=== PATIENT | female | born 1990 | race Caucasian/White ===

== ENCOUNTER → 2018-12-21 15:03 | Observation (INO) ==
--- NOTE | 2018-12-21 14:16 | OB/GYN Progress Note ---
Date of Encounter: 12/21/18 Time of Encounter: 14:15 - Assessment and Plan (1) 32 weeks gestation of Current Visit: Yes Status: Acute NST reactive. Non indicative of labor Negative urine results Discussed common discomforts of and relief measures. Discharge home with labor precautions Follow up with routine care and PRN POC per consult with Dr. Miguel (2) NST (non-stress test) reactive Current Visit: Yes Status: Acute Subjective - Subjective Interval history: Ms Eason is a that presents to triage with c/o contractions every 1 to 1.5 hours, lower back pain, and swelling in her feet. She states positive movement. She denies headaches, vision changes, epigastric pain, leaking of fluid, vaginal discharge, and regular contractions/cramping. She is seen by Dr Miguel for her care and has had an uncomplicated . Antepartum ROS: movement normal, contractions, no loss of fluid, no vaginal bleeding Objective - Vital Signs Vital Signs: Intake and Output 12/20/18 12/21/18 12/21/18 23:59 07:59 15:59 Other: Weight 78.9 kg Patient Weight 12/21/18 23:59 Weight 78.9 kg - Exam FHR: auscultation normal, category 1 FHR comments: 135 bpm per EFM uterine irritability via toco Auscultation: bilateral: normal Abdomen: Present: normal appearance, soft, gravid. Absent: distention, tenderness Uterus: Present: normal. Absent: firm, tenderness
[2018-12-21 14:18] LABS: Bilirubin,Urine Negative (Negative); Blood,Urine Negative (Negative); Clarity,Urine Cloudy (Clear); Color,Urine Yellow (Yellow); Glucose,Urine (UA) Normal (Normal); Ketones,Urine Negative (Negative); Leukocyte Esterase,Urine Small (Negative); Nitrite,Urine Negative (Negative); Protein,Urine Negative (Neg-Trace); Urobilinogen,Urine Normal (Normal)
[2018-12-21 14:20] LABS: Bacteria,Urine None Seen per hpf (None-Few); Hyaline Casts,Urine None Seen per lpf (None-Few); RBC,Urine 0-3 per hpf (0-3); Squamous Epithelial Cell,Urine Many per lpf (None-Few)
[2018-12-21 14:37] LABS: Amphetamine Screen,Urine Negative ng/mL (Cutoff=1000); Barbiturate Screen,Urine Negative ng/mL (Cutoff=200); Benzodiazepines Screen,Urine Negative ng/mL (Cutoff=200); Cannabinoid Screen,Urine Negative ng/mL (Cutoff = 50); Cocaine Screen,Urine Negative ng/mL (Cutoff= 300); Opiate Screen,Urine Negative ng/mL (Cutoff=300); Phencyclidine Screen,Urine Negative ng/mL (Cutoff=25)
== END | disposition home or self-care (01) ==
LOC: 1NENULAB
PROVIDERS: ADMIT Advanced Practice Midwife; ATTEND Advanced Practice Midwife

== ENCOUNTER 2019-02-04 08:46 | Inpatient (IN) ==
--- NOTE | 2019-02-04 10:10 | Anesthesia Evaluation PreOp ---
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 Other Medical History: Denies Any Significant HX Anesthesia History: No Prior Anesthetic Complications, Past Anesthesia (denies any family hx.) Alcohol Use: none Drug use: none Medications and Allergies Calcium Carbonate [Tums] 1,000 mg PO Q4HR PRN 02/04/19 [History] Allergy/AdvReac Type Severity Reaction Status Date / Time azithromycin Allergy Anaphylaxis Verified 12/21/18 13:42 [From Zithromax Z-Bhupinder] latex Allergy Anaphylaxis Verified 12/21/18 13:42 dextromethorphan AdvReac Vomiting Verified 12/21/18 13:42 [From Capmist DM] guaifenesin [From Capmist DM] AdvReac Vomiting Verified 12/21/18 13:42 pseudoephedrine AdvReac Vomiting Verified 12/21/18 13:42 [From Capmist DM] Anesthesia Results - Labs 02/04/19 10:11 Anesthesia Exam - HEENT Pupil (Motor): Pupils equal Mallampati: II Teeth: Normal Oral Opening: Greater than 3 - TYPESETTING SUPERVISOR LOC: Oriented TYPESETTING SUPERVISOR Motor: Normal RUE, Normal LUE, Normal RLE, Normal LLE, Normal Face TYPESETTING SUPERVISOR Sensory: Normal: RUE, LUE, RLE, LLE, Face - Cardiac Rhythm: Regular Murmur: None - Pulmonary Breath Sounds: bilateral Clear Respiratory Effort: Symmetrical Anesthesia Assess/Plan ASA Score: 2 Level of consciousness: Cooperative, Oriented Anesthetic Plan: General, Spinal, Epidural Monitoring Plan: Standard Monitors Recovery Plan: PACU
[2019-02-04] MEDS ORDERED: Epidural Premix (fent/bupiv) 110 ML EP SCH (10:15)
[2019-02-04] MEDS ORDERED: Naloxone 0.4 MG/ML INJ IVP PRN (10:16)
[2019-02-04] MEDS ORDERED: Famotidine 20 MG/2 ML VIAL IVP PRN (10:16)
[2019-02-04] MEDS ORDERED: Lidocaine 1% 20 ML MDV INFILT PRN (10:16)
[2019-02-04] MEDS ORDERED: Metoclopramide 10 MG/2 ML VIAL IVP PRN (10:16)
[2019-02-04] MEDS ORDERED: *HR* Nalbuphine 10 MG/ML AMPUL IVP PRN (10:16)
[2019-02-04] MEDS ORDERED: Ondansetron 4 MG/2 ML VIAL IVP PRN (10:16)
[2019-02-04] MEDS ORDERED: Oxytocin 20 units/ LR 1000 mL 20 UNIT/1,000 ML BAG IVC SCH ×4 (10:30→17:14)
[2019-02-04] MEDS ORDERED: Ringers Solution, Lactated 1,000 ML IVC SCH (10:30)
[2019-02-04 10:35] LABS: Basophils % 0.4 %; Eosinophils % 0.6 %; Hematocrit 30.6 % (35.3-44.9); Hemoglobin 9.9 g/dL (11.5-15.4); Immature Granulocytes % 1.3 % (0-4); Lymphocytes # 1.5 K/mcL (0.6-4.6); Lymphocytes % 20.5 %; Mean Corpuscular HGB Conc 32.4 g/dL (31.6-35.5); Mean Corpuscular Hemoglobin 27.2 pg (28.0-33.3); Mean Corpuscular Volume 84.1 fL (83.0-100.0); Mean Platelet Volume 13.6 fL (9.4-12.4); Monocytes # 0.5 K/mcL (0.0-1.3); Monocytes % 6.7 %; Neutrophils # 5.1 K/mcL (1.6-8.9); Platelet Count 144 K/mcL (140-400); Red Blood Count 3.64 M/mcL (3.82-4.97); Red Cell Distribution Width 13.8 % (11.5-14.5); Segmented Neutrophils % 70.5 %
[2019-02-04] MEDS ORDERED: Epidural Premix (fent/bupiv) 110 ML EP ONE (11:09)
[2019-02-04] MEDS ORDERED: Lidocaine -MPF 2% 5 ML VIAL ONE (11:12)
[2019-02-04] MEDS ORDERED: Famotidine 20 MG/2 ML VIAL IVP ONE (11:37)
[2019-02-04 12:18] LABS: Amphetamine Screen,Urine Negative ng/mL (Cutoff=1000); Barbiturate Screen,Urine Negative ng/mL (Cutoff=200); Benzodiazepines Screen,Urine Negative ng/mL (Cutoff=200); Cannabinoid Screen,Urine Negative ng/mL (Cutoff = 50); Cocaine Screen,Urine Negative ng/mL (Cutoff= 300); Opiate Screen,Urine Negative ng/mL (Cutoff=300); Phencyclidine Screen,Urine Negative ng/mL (Cutoff=25)
[2019-02-04 12:56] LABS: Rubella IgG Antibody Negative (POSITIVE); Varicella Zoster IgG Antibody Positive
[2019-02-04] MEDS ORDERED: *HR* Ropivacaine/PF 0.2% 20 ML VIAL ONE (14:31)
--- NOTE | 2019-02-04 15:03 | Anesthesia Procedures ---
Date of Encounter: 02/04/19 Time of Encounter: 13:53 Procedures: Anesthesia - Epidural/Spinal Patient ID/Chart reviewed: Yes Patient examined: Yes OB Eval: Gestational age: term OB Eval: : 1 OB Eval: Contractions: Non-stressed pattern Consent Obtained: Yes Supplemental Oxygen: None/Room Air Site Prep: Aseptic Technique, Sterile prep and drape, 0.5% Chlorhexidine/Alcohol Patient position: upright Local Anesthetic: Lidocaine 1% Amount of Local Anesthetic used: 2 Touhy Needle Gauge: 18 Touhy Needle Depth (cm): 5 Catheter Depth at Skin (cm): 9 Test Dose (1.5% Lido + Epi): Volume given (mls): 4 Test Dose Result: Negative Loading Dose: Other: 10ml from solution Loading Dose Administered: Thru Catheter Infusion Med: 0.125% Bupivacaine w/ 2 mcg/ml Fentanyl Infusion Rate (mls/hr): [address]: Tegaderm, Tape Interspace Used: L3-L4 Loss of Resistance (JORGE): Yes (saline) Blood: No CSF: Yes (25g purposeful sprotte, ) Paresthesia: No Procedure: vss though out, FHR stable per RN' s
[2019-02-04] MEDS ORDERED: Acetaminophen 325 MG TABLET PO PRN (16:54)
[2019-02-04] MEDS ORDERED: Benzocaine/Menthol 56 GM AEROSOL SPRAY TP PRN (16:54)
[2019-02-04] MEDS ORDERED: Measles/Mumps/Rubella Vacc 0.5 ML VIAL SQ PRN (16:54)
--- NOTE | 2019-02-04 17:05 | OB/GYN Procedure Note ---
Delivery - Delivery Date: 02/04/19 Provider: Brad Miguel Intrapartum events: none Delivery induction: oxytocin Delivery augmentation: rupture of membranes Delivery monitor: external FHT, external uterine Anesthesia: epidural Quantitated Blood Loss: 200 - Infant (s) A Infant Delivery Date: 02/04/19 Infant Delivery Time: 16:33 Presentation: vertex Position: OA Route of delivery: Gender: Female Viability: Viable Pounds: 7 Ounces: 8 Weight Gram: 3.41 kg at 1 minute: 9 at 5 mins: 9 Shoulder Dystocia: not encountered Specimens collected: cord blood Placenta: spontaneous Cord: 3 umbilical vessels - Repair Episiotomy: none Laceration Description: Perineal - 2nd Degree - Complications Delivery complications: none - Disposition Mom disposition: stable in LDR [place] disposition: stable in LDR - Comments Comments: Patient progressed rapidly to complete and pushing. She had a spontaneous vaginal delivery of a female infant over an intact perineum. Infant's head was in the perineum easily. There was a tight cord around the neck which was reduced. The rest of the was then delivered with 1 push. cried immediately upon delivery. Cord was cut to cut. The was in past nurse in attendance. Cord bloods obtained. Placenta was delivered spontaneously and intact. There are no cervical, vaginal or periurethral lacerations noted. There was a second-degree perineal laceration noted and repaired with 0 Vicryl suture fashion. Patient delivered a female infant. Weight was 7 lbs. 8 oz. Apgars are 9 at 1 minute and 9 at 5 minutes. Assessment blood loss 200 mL.
--- NOTE | 2019-02-04 17:20 | OB/GYN History & Physical ---
Date of Encounter: 02/04/19 Time of Encounter: 17:18 Assessment and Plan (1) 39 weeks gestation of Current visit: Yes Status: Acute (2) Elective induction of labor planned Current visit: Yes Status: Acute History of Present Illness Chief complaint: Induction of labor HPI: Ms. Eason is a 28 year old female 1 at 39 weeks and 3 days to scheduled for induction of labor. This patient presented doing well with no complaints. She has allergies to Zithromax and Missed. She has no chronic medical cond itions. Surgical history is negative. She is currently on vitamins. Socially she denies tobacco, alcohol, illicit drug use. She has no history of abnormal Pap smears, STDs or pelvic infections. 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 Psychiatric history: no psych history - Past Surgical History Surgical History: appendectomy Additional surgical history: 2010 Appendectomy - Social History Smoking Status: Never smoker Smokeless Tobacco Status: No Alcohol use: none Drug use: none - Family History Mother Living Status: Still Living Hx Family Cardiac Disorders: Yes (HTN, High Cholesterol) Hx Family Cancer: Yes (Double Mastectomy Breast CA) Hx Family Genitourinary Disorders: Yes (hx of kidney stones) Hx Family HEENT Disorders: Yes (Macular degeneration) Father Hx Family Endocrine Disorder: Yes (Type II DM) Obstetrical History - Pregnancies : 1 Medications and Allergies Calcium Carbonate [Tums] 1,000 mg PO Q4HR PRN 02/04/19 [History] Allergy/AdvReac Type Severity Reaction Status Date / Time azithromycin Allergy Anaphylaxis Verified 12/21/18 13:42 [From Zithromax Z-Bhupinder] latex Allergy Anaphylaxis Verified 12/21/18 13:42 dextromethorphan AdvReac Vomiting Verified 12/21/18 13:42 [From Capmist DM] guaifenesin [From Capmist DM] AdvReac Vomiting Verified 12/21/18 13:42 pseudoephedrine AdvReac Vomiting Verified 12/21/18 13:42 [From Capmist DM] Review of System OB All systems PM: reviewed and no additional remarkable complaints except as stated Exam - Constitutional Constitutional: well developed, well nourished, no acute distress - HEENT HEENT: EOMI, PERRL - Neck Neck exam: full ROM - Lungs Respiratory exam: CTAB - Cardiovascular Cardiovascular exam: RRR - Abdomen Abdomen: Present: bowel sounds normal, gravid - Extremities Extremities exam: full ROM - Vagina Vagina: Present: normal moisture - Cervix Dilation: 3 Effacement: 50 Station: -2 - Uterus Uterus exam: Present: normal size Results Result Diagrams: 02/04/19 10:11 Abnormal lab results RBC 3.64 M/mcL (3.82-4.97) L 02/04/19 10:11 Hgb 9.9 g/dL (11.5-15.4) L 02/04/19 10:11 Hct 30.6 % (35.3-44.9) L 02/04/19 10:11 MCH 27.2 pg (28.0-33.3) L 02/04/19 10:11 MPV 13.6 fL (9.4-12.4) H 02/04/19 10:11 Negative (POSITIVE) L 02/04/19 11:42 All other labs normal. - VTE Reasons for not Prescribing Prophylaxis: Treatment not Indicated - Low risk for VTE
[2019-02-04] MEDS ORDERED: Ibuprofen 600 MG TABLET PO PRN (17:50)
[2019-02-05 05:17] LABS: Basophils % 0.3 %; Eosinophils # 0.1 K/mcL (0.0-0.6); Eosinophils % 0.6 %; Hematocrit 27.3 % (35.3-44.9); Hemoglobin 8.8 g/dL (11.5-15.4); Immature Granulocytes % 0.8 % (0-4); Lymphocytes % 17.1 %; Mean Corpuscular HGB Conc 32.2 g/dL (31.6-35.5); Mean Corpuscular Hemoglobin 26.9 pg (28.0-33.3); Mean Corpuscular Volume 83.5 fL (83.0-100.0); Mean Platelet Volume 13.2 fL (9.4-12.4); Monocytes % 8.3 %; Neutrophils # 8.5 K/mcL (1.6-8.9); Platelet Count 124 K/mcL (140-400); Red Blood Count 3.27 M/mcL (3.82-4.97); Red Cell Distribution Width 14.1 % (11.5-14.5); Segmented Neutrophils % 72.9 %
[2019-02-05] MEDS ORDERED: Prenatal Vit/FA 1 EACH TABLET PO SCH ×2 (09:00)
--- NOTE | 2019-02-05 09:29 | Discharge Summary ---
Date of Encounter: 02/05/19 Time of Encounter: 09:27 - Discharge Diagnosis (1) Vaginal delivery Priority: Primary Status: Acute Comments: Pt meeting all milestones. 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 No complaints. She declines contraception at this time. Safe spacing discussed. (2) Rubella nonimmune status, delivered, current hospitalization Priority: Secondary Status: Acute Comments: Offer vaccine prior to discharge (3) anemia Priority: Secondary Status: Acute Comments: Pt denies s/sx anemia. Discharge home on iron. - Discharge Medications Prescriptions: New Ibuprofen [Motrin] 600 mg PO Q6HR PRN #30 tablet PRN Reason: Mild To Moderate Pain Docusate [Colace] 100 mg PO BID #60 capsule Ferrous Sulfate 325 mg PO DAILY #30 tablet Continued Calcium Carbonate [Tums] 1,000 mg PO Q4HR PRN PRN Reason: Heartburn Home Medications: Calcium Carbonate [Tums] 1,000 mg PO Q4HR PRN 02/04/19 [History] Docusate [Colace] 100 mg PO BID #60 capsule 02/05/19 [Rx] Ferrous Sulfate 325 mg PO DAILY #30 tablet 02/05/19 [Rx] Ibuprofen [Motrin] 600 mg PO Q6HR PRN #30 tablet 02/05/19 [Rx] Allergies/Adverse Reactions: Allergy/AdvReac Type Severity Reaction Status Date / Time azithromycin Allergy Anaphylaxis Verified 12/21/18 13:42 [From Zithromax Z-Bhupinder] latex Allergy Anaphylaxis Verified 12/21/18 13:42 dextromethorphan AdvReac Vomiting Verified 12/21/18 13:42 [From Capmist DM] guaifenesin [From Capmist DM] AdvReac Vomiting Verified 12/21/18 13:42 pseudoephedrine AdvReac Vomiting Verified 12/21/18 13:42 [From Capmist DM] Data Procedures and tests throughout hospitalization: Laboratory Tests 02/04/19 02/04/19 02/04/19 10:11 11:42 11:42 WBC 7.2 RBC 3.64 L Hgb 9.9 L Hct 30.6 L MCV 84.1 MCH 27.2 L MCHC 32.4 RDW 13.8 Plt Count 144 MPV 13.6 H Immature Gran % 1.3 Seg Neutrophils % 70.5 Lymphocytes % 20.5 Monocytes % 6.7 Eosinophils % 0.6 Basophils % 0.4 Neutrophils # 5.1 Lymphocytes # 1.5 Monocytes # 0.5 Eosinophils # 0.0 Basophils # 0.0 Urine Opiates Screen Negative Ur Barbiturates Screen Negative Ur Phencyclidine Scrn Negative Ur Amphetamines Screen Negative U Benzodiazepines Scrn Negative Urine Cocaine Screen Negative U Marijuana (THC) Screen Negative Ur Drug Screen Interp See Below Hep Bs Antigen Nonreactive Rubella IgG Antibody VZV IgG Antibody 02/04/19 02/05/19 11:42 04:50 WBC 11.7 H D RBC 3.27 L Hgb 8.8 L Hct 27.3 L MCV 83.5 MCH 26.9 L MCHC 32.2 RDW 14.1 Plt Count 124 L MPV 13.2 H Immature Gran % 0.8 Seg Neutrophils % 72.9 Lymphocytes % 17.1 Monocytes % 8.3 Eosinophils % 0.6 Basophils % 0.3 Neutrophils # 8.5 Lymphocytes # 2.0 Monocytes # 1.0 Eosinophils # 0.1 Basophils # 0.0 Urine Opiates Screen Ur Barbiturates Screen Ur Phencyclidine Scrn Ur Amphetamines Screen U Benzodiazepines Scrn Urine Cocaine Screen U Marijuana (THC) Screen Ur Drug Screen Interp Hep Bs Antigen Rubella IgG Antibody Negative L VZV IgG Antibody Positive Labs on day of discharge: Labs from last 24 hours 02/05/19 02/04/19 02/04/19 04:50 11:42 11:42 WBC 11.7 H D RBC 3.27 L Hgb 8.8 L Hct 27.3 L MCV 83.5 MCH 26.9 L MCHC 32.2 RDW 14.1 Plt Count 124 L MPV 13.2 H Immature Gran % 0.8 Seg Neutrophils % 72.9 Lymphocytes % 17.1 Monocytes % 8.3 Eosinophils % 0.6 Basophils % 0.3 Neutrophils # 8.5 Lymphocytes # 2.0 Monocytes # 1.0 Eosinophils # 0.1 Basophils # 0.0 Urine Opiates Screen Ur Barbiturates Screen Ur Phencyclidine Scrn Ur Amphetamines Screen U Benzodiazepines Scrn Urine Cocaine Screen U Marijuana (THC) Screen Ur Drug Screen Interp Hep Bs Antigen Nonreactive Rubella IgG Antibody Negative L VZV IgG Antibody Positive 02/04/19 02/04/19 11:42 10:11 WBC 7.2 RBC 3.64 L Hgb 9.9 L Hct 30.6 L MCV 84.1 MCH 27.2 L MCHC 32.4 RDW 13.8 Plt Count 144 MPV 13.6 H Immature Gran % 1.3 Seg Neutrophils % 70.5 Lymphocytes % 20.5 Monocytes % 6.7 Eosinophils % 0.6 Basophils % 0.4 Neutrophils # 5.1 Lymphocytes # 1.5 Monocytes # 0.5 Eosinophils # 0.0 Basophils # 0.0 Urine Opiates Screen Negative Ur Barbiturates Screen Negative Ur Phencyclidine Scrn Negative Ur Amphetamines Screen Negative U Benzodiazepines Scrn Negative Urine Cocaine Screen Negative U Marijuana (THC) Screen Negative Ur Drug Screen Interp See Below Hep Bs Antigen Rubella IgG Antibody VZV IgG Antibody Date of admission: 02/04/19 08:46 Primary care physician: Kennedy Betancourt DO Consults: 02/04/19 16:55 Consult to Customer Support Assistant [CONS] Routine Comment: Vaginal delivery, consult needed Discharging clinician: Lorie Ledbetter Anticipated date of discharge: 02/05/19 - Patient Status Disposition: Home, Self-Care Condition: Good Functional capacity at discharge: independent ambulation Overall status at discharge: patient is progressing back to baseline - Discharge Instructions Follow Up With: Kennedy Betancourt DO [Primary Care Provider] - Brad Miguel MD [Partnered Physician] - - Diet and Activity Activity: increase activity as tolerated Diet: regular diet Hospital Course Reason for admission: induction of labor Delivery: Episiotomy: none Laceration: 2nd degree Other procedures: none complications: none Discharge diagnosis: IUP at term delivered baby: female Hospital course: - Delivery Date: 02/04/19 Provider: Brad Miguel Intrapartum events: none Delivery induction: oxytocin Delivery augmentation: rupture of membranes Delivery monitor: external FHT, external uterine Anesthesia: epidural Quantitated Blood Loss: 200 - Infant (s) A Infant Delivery Date: 02/04/19 Infant Delivery Time: 16:33 Presentation: vertex Position: OA Route of delivery: Gender: Female Viability: Viable Pounds: 7 Ounces: 8 Weight Gram: 3.41 kg at 1 minute: 9 at 5 mins: 9 Shoulder Dystocia: not encountered Specimens collected: cord blood Placenta: spontaneous Cord: 3 umbilical vessels - Repair Episiotomy: none Laceration Description: Perineal - 2nd Degree - Complications Delivery complications: none - Disposition Mom disposition: home PPD1 disposition: home with mother, bottle feeding Time Attestation: Total time spent providing and/or coordinating discharge services: Time Spent: Less than 30 minutes Exam - Constitutional Vitals: Temp Pulse Resp BP Pulse Ox 97.8 F 66 14 109/71 98 02/05/19 03:21 02/05/19 03:21 02/05/19 03:21 02/05/19 03:21 02/05/19 03:21 General appearance IM: A&O X 3 - Respiratory Respiratory exam: Present: CTAB - Cardiovascular Cardiovascular exam IM: Present: RRR - GI/Abdominal GI/Abdominal exam IM: soft, no peritoneal signs - Uterine Tone: Firm Uterus Position: 1 Finger Below Umbilicus - Extremities Exam Extremities exam IM: Present: pedal edema (2+ bilaterally, no erythema or warmth) - Neurological Exam Neurological exam: normal gait, oriented X3
[2019-02-05 09:44] VITALS: BP 117/70
== END 2019-02-05 10:20 | disposition home or self-care (01) | DRG 807 ==
LOC: 1NENULAB 08:46 → 1NENUOBS 20:43
PROVIDERS: ADMIT Obstetrics & Gynecology; ATTEND Obstetrics & Gynecology